=== PATIENT | male | born 1990 | race Caucasian/White ===

== ENCOUNTER 2018-01-19 16:37 | Emergency (ER) | payer SELFPAY ==
[2018-01-19 16:45] VITALS: BP 123/73; PULSE 100; RESP 18; TEMP 36.8; O2SAT 99; BMI 25.2
--- NOTE | 2018-01-19 18:25 | ED.DENTAL ---
HPI - Dental/Oral <LORAINE Crawley - Last Filed: 01/19/18 18:54> General Chief complaint: Dental/Oral Stated complaint: trouble closing his jaw for several days Time Seen by Provider: 01/19/18 18:14 Source: patient Mode of arrival: ambulatory Limitations: no limitations History of Present Illness HPI Narrative: Patient is a 27-year-old male who presents with chief complaint of right jaw popping and pain for 2 days. He states that his jaws popping when he opens and closes his mouth, which causes pain. He states he feels pain when he closes his mouth all the way. He denies any fevers nausea vomiting diarrhea abdominal pain or shortness of breath. 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 He has not taken anything for pain. He does not notice any worsening or alleviating factors. Related Data Allergies Allergy/AdvReac Type Severity Reaction Status Date / Time No Known Drug Allergies Allergy Verified 01/19/18 16:51 Review of Systems <LORAINE Crawley - Last Filed: 01/19/18 18:54> Review of Systems GENERAL: Denies chills, fatigue, malaise, fever, sweats. HEENT: HPI RESPIRATORY: Denies dyspnea, cough, wheezing, hemoptysis, sputum. CARDIOVASCULAR: Denies chest pain, palpitations, orthopnea, edema, GASTROINTESTINAL: Denies nausea, vomiting, abdominal pain, diarrhea, constipation, melena. : Denies dysuria, frequency, incontinence, hematuria, urinary retention. MUSCULOSKELETAL: denies weakness, joint pain, or bony pain SKIN: Denies rash, skin lesions, or other NEUROLOGIC: Denies weakness, headache, numbness, change in speech, confusion, seizures, incoordination. PSYCHIATRIC: No concerning psychosocial issues. 12 point review of systems is negative except for those stated above Exam <LORAINE Crawley - Last Filed: 01/19/18 18:54> Narrative Exam Narrative: GENERAL: This is a well-nourished, well-developed patient, in mild distress. HEAD: Atraumatic. Normocephalic. No temporal or scalp tenderness. EYES: Pupils equal round and reactive. Extraocular motions intact. No scleral icterus. No injection or drainage. ENT: Nose without bleeding, purulent drainage or septal hematoma. Throat without erythema, tonsillar hypertrophy or exudate. Uvula midline. Airway patent. pain to palpation bilateral TMJ areas. Patient has popping and crepitus palpated upon opening and closing of the jaw. No pain to palpation of gum line right upper and lower teeth. No erythema or swelling or evidence of dental abscess or infection noted. NECK: Trachea midline. No JVD or lymphadenopathy. Supple, nontender, no meningeal signs. CARDIOVASCULAR: Regular rate and rhythm RESPIRATORY: no increased respiratory effort no cough on exam EXTREMITIES: No clubbing, cyanosis, or edema. No joint tenderness, effusion, or edema noted. BACK: Nontender without deformity or crepitance. No flank tenderness. NEURO: AOx3. SKIN: No rash or erythema. Initial Vital Signs Initial Vital Signs: Vital Signs Temperature 98.3 F 01/19/18 16:45 Pulse Rate 100 H 01/19/18 16:45 Respiratory Rate 18 01/19/18 16:45 Blood Pressure 123/73 01/19/18 16:45 Pulse Oximetry 99 01/19/18 16:45 <Jack Thompson DO - Last Filed: 01/20/18 02:16> Initial Vital Signs Initial Vital Signs: Vital Signs Temperature 98.3 F 01/19/18 16:45 Pulse Rate 100 H 01/19/18 16:45 Respiratory Rate 18 01/19/18 16:45 Blood Pressure 123/73 01/19/18 16:45 Pulse Oximetry 99 01/19/18 16:45 Course <TANNER Crawley - Last Filed: 01/19/18 18:54> Orders Ordered: Discontinued Medications Ketorolac Tromethamine (Toradol) 60 mg IM NOW ONE Stop: 01/19/18 18:23 Last Admin: 01/19/18 18:49 Dose: 60 mg Vital Signs - 8 hr 01/19/18 19:08 Pulse Rate 70 Respiratory Rate 15 Blood Pressure [Right Arm] 131/81 Pulse Oximetry 97 <DO Ladi Zabala Last Filed: 01/20/18 02:16> Orders Ordered: Discontinued Medications Ketorolac Tromethamine (Toradol) 60 mg IM NOW ONE Stop: 01/19/18 18:23 Last Admin: 01/19/18 18:49 Dose: 60 mg Vital Signs - 8 hr 01/19/18 19:08 Pulse Rate 70 Respiratory Rate 15 Blood Pressure [Right Arm] 131/81 Pulse Oximetry 97 MDM - Dental/Oral <NAHOMY Crawley-BC - Last Filed: 01/19/18 18:54> MDM Narrative Medical decision making narrative: Patient presents with chief complaint of right jaw pain and popping. Exam is consistent with TMJ. He has no evidence of dental infection or abscess.Discussed at length management of TMJ and recommended follow up with dentist. Patient has no questions or concerns upon discharge. Discharge Plan Departure Patient Disposition: Home Clinical Impression: TMJ (temporomandibular joint disorder) Discharge Date/Time: 01/19/18 19:22 Interventions: ED Discharge Assessment Last Done: 01/19/18 19:21 Instructions: TMJ Syndrome (Alternative Therapy), DI for Temporomandibular Disorder Activity Restrictions/Additional Instructions: I have given you discharge instructions regarding TMJ. Please use ice, take anti-inflammatories as needed and refrain from chew we foods. Please consider a dental guard for nighttime teeth grinding. Please follow-up with your dentist or your primary care provider. <Jack Thompson DO - Last Filed: 01/20/18 02:16> Cosign ED Attending Sumitature Attestation: I was immediately available in the department for consultation. Documentation has been reviewed. I agree with assessment and plan.
[2018-01-19] MEDS: KETOROLAC 60 MG/2 ML VIAL IM (18:49)
[2018-01-19 19:08] VITALS: BP 131/81; PULSE 70; RESP 15; O2SAT 97
== END 2018-01-19 19:22 | disposition home or self-care (01) ==
PROVIDERS: Emergency Provider Nurse Practitioner Family
DX: S03.00XA Dislocation of jaw, unspecified side, initial encounter (principal)
CPT/HCPCS: 96372; 99283; J1885